=== PATIENT | female | born 1995 | race Two or more races ===

== ENCOUNTER 2019-01-30 13:52 | Emergency (ER) | payer MEDICAID, BC ==
[~2019-01-30] VITALS: Ht 152.4 cm; Wt 64.4 kg
--- NOTE | 2019-01-30 14:13 | NUR ---
BIB ra, pt was sitting in bath tub at home. ON ARRIVAL, PT AOX0. SKIN INTACT, VSS, RR EVEN AND UNLABORED ON RA. HOOKED TO MONITOR AND MADE COMFORTABLE. [employer] AT BEDSIDE. READY FOR EVAL.
[2019-01-30] MEDS ORDERED: NALOXONE HCL 0.4 MG/ML AMPUL ONE (14:17)
[2019-01-30 14:29] LABS: BASOPHILS # (AUTO) 0.1 /CMM (0.0-0.2); HEMATOCRIT 44 % (33-45); HEMOGLOBIN 15.3 g/dL (11.5-14.8); LYMPHOCYTES # (AUTO) 2.4 /CMM (0.8-4.8); LYMPHOCYTES % (AUTO) 21.4 % (20.0-44.0); MEAN CORPUSCULAR HGB CONC 35 g/dl (31.0-36.0); MEAN CORPUSCULAR VOLUME 89 fL (82-100); MONOCYTES # (AUTO) 0.7 /CMM (0.1-1.30); MONOCYTES % (AUTO) 6.1 % (2.0-12.0); NEUTROPHILS % (AUTO) 70.5 % (43.0-81.0); PLATELET COUNT (AUTO) 232 /CMM (150-450); RED BLOOD CELL COUNT(AUTO) 4.94 MIL/uL (4.0-5.2); WHITE BLOOD COUNT (AUTO) 11.4 K/uL (4.3-11.0)
[2019-01-30] MEDS ORDERED: NALOXONE HCL 0.4 MG/ML AMPUL IV ONE (14:30)
[2019-01-30] MEDS ORDERED: IV NS 0.9% 1,000 ML BAG IV ONE (14:30)
[2019-01-30 14:37] LABS: CALCIUM, SERUM 9.5 mg/dL (8.5-10.1); CARBON DIOXIDE 31 mmol/L (21-32); CHLORIDE 102 mmol/L (98-107); CREATININE 1.1 mg/dL (0.6-1.3); GLUCOSE 82 mg/dL (74-106); POTASSIUM 3.7 mmol/L (3.5-5.1); SODIUM SERUM 142 mmol/L (136-145); UREA NITROGEN, BLOOD 19 mg/dL (7-18)
--- NOTE | 2019-01-30 14:42 | NUR ---
IV ACCESS ESTABLISHED. PT TALKING A BIT. DENIES SI, STATES SHE'S WORRIED SHE MIGHT HURT SOMEONE BUT IS NOT SPECIFIC. AWARE
[2019-01-30 14:47] LABS: ACETAMINOPHEN < 2 ug/ml (10-30); ALANINE AMINOTRANSFERASE 30 U/L (12-78); ALBUMIN 4.5 g/dL (3.4-5.0); ALCOHOL, BLOOD < 3 mg/dL (0-0); ALKALINE PHOSPHATASE 38 U/L (46-116); ASPARTATE AMINOTRANSFERASE 16 U/L (15-37); BILIRUBIN,DIRECT 0.1 mg/dL (0.0-0.2); BILIRUBIN,TOTAL 0.6 mg/dL (0.2-1.0); SALICYLATE 1.6 mg/dL (2.8-20.0); TOTAL PROTEIN, SERUM 8.4 g/dL (6.4-8.2)
--- NOTE | 2019-01-30 15:30 | NUR ---
GIRLFRIEND AT BEDSIDE
--- NOTE | 2019-01-30 15:47 | NUR ---
URINE COLLECTED VIA STRAIGHT CATH AND SENT TO STAT LAB PER
[2019-01-30 16:09] LABS: APPEARANCE,URINE Clear (CLEAR); BILIRUBIN,URINE MODERATE (NEGATIVE); BLOOD, URINE Trace-intact Ery/uL (NEGATIVE); COLOR,URINE Dark (YELLOW); KETONES,URINE >=160 (NEGATIVE); LEUKOCYTE ESTERASE ,URINE Negative (NEGATIVE); NITRITE, URINE Negative (NEGATIVE); PROTEIN,URINE 100 mg/dl (NEGATIVE); UGLUCOSE Negative (NEGATIVE)
[2019-01-30 16:25] LABS: BACTERIA,URINE Moderate /HPF (None Seen); RBC,URINE 0-3 /HPF (0-2); WBC,URINE 0-2 /HPF (0-3)
[2019-01-30 16:26] LABS: SQUAMOUS EPITHELIAL CELL,UR Few /HPF (None Seen)
--- NOTE | 2019-01-30 16:48 | NUR ---
PT IS TALKING. APPEARS TO BE IN BETTER SPIRITS. MD AWARE
--- NOTE | 2019-01-30 17:08 | NUR ---
CALLED MINI ESTRELLA [facility] FOR CONSULT, LEFT MESSAGE.
--- NOTE | 2019-01-30 18:27 | NUR ---
PT SITTING COMFORTABLY IN BED CHATTING WITH FAMILY. NO COMPLAINTS AT THIS TIME. WILL CONT TO MONITOR.
[2019-01-30 18:54] VITALS: BP 122/78
--- NOTE | 2019-01-30 19:34 | NUR ---
Patient eloped from facility. ER MD notified.
== END 2019-01-30 19:34 | disposition left against medical advice (07) ==
LOC: ER 13:53
DX: R41.82 Altered mental status, unspecified (principal); F19.10 Other psychoactive substance abuse, uncomplicated; F32.9 Major depressive disorder, single episode, unspecified; R45.851 Suicidal ideations; F12.10 Cannabis abuse, uncomplicated; F15.10 Other stimulant abuse, uncomplicated
CPT/HCPCS: 36415; 71045; 80048; 80076; 80305; 80307; 80329; 81001; 84702; 85025; 87086; 96361; 96374; 99284; G0480; J2310; J7030; 81000-TC

== ENCOUNTER 2019-03-05 09:29 | Emergency (ER) | payer BC, MEDICAID ==
[~2019-03-05] VITALS: Ht 167.6 cm; Wt 80.3 kg
--- NOTE | 2019-03-05 09:50 | NUR ---
PT BROUGHT FOR C/C ANXIOUS SINCE THIS AM, POSS WITHDRAWING FROM MDMA PER PT. WILL CONTINUE TO MONITOR
--- NOTE | 2019-03-05 09:55 | NUR ---
PT STATES "I THINK I'M WITHDRAWING FROM MDMA." PT STATES LAST USE WAS 2 DAYS AGO. PT REPORTS FEELING VERY ANXIOUS. URBAN ANTHROPOLOGIST SHOWS NSR 70BPM. RESPIRATIONS EVEN AND UNLABORED 18 PER MIN. O2 SAT 99% ON RA. LUNGS CTA. ABDOMEN SOFT AND NONDISTENDED. BOWEL SOUNDS PRESENT IN ALL 4 QUADRANTS. PT REPORTS 6/10 CRAMPING PAIN IN LOWER ABDOMEN. PT ALSO HAS C/O "TONGUE SORES," PT HAS WHITE PATCHES ON TONGUE. SAFETY PRECAUTIONS IN PLACE. FAMILY AT BEDSIDE. PENDING MD HU AND ORDERS.
[2019-03-05] MEDS ORDERED: LORAZEPAM 1 MG TABLET PO ONE (10:30)
[2019-03-05] MEDS ORDERED: LORAZEPAM 0.5 MG TABLET ONE (10:35)
--- NOTE | 2019-03-05 10:45 | NUR ---
PT NOW DENIES ALL BODY PAIN, STATES SHE IS INTERESTED IN JOINING A REHABILITATION PROGRAM FOR HER MDMA, MARIJUANA, AND ALCOHOL USE. AAOX4.
--- NOTE | 2019-03-05 11:26 | NUR ---
CALLED [facility] FOR SOCIAL SERVICE CONSULT, STATES WILL BE HERE WHEN SHE IS AVAILABLE.
--- NOTE | 2019-03-05 11:45 | NUR ---
PT STATES SHE NO LONGER FEELS ANXIOUS, MANAGER OF CASE AT BEDSIDE WITH PT. VS WNL. AAOX4. BREATHS EVEN AND UNLABORED. PENDING CONSULT AND DISPOSITION.
--- NOTE | 2019-03-05 12:12 | NUR ---
PT VERBALIZED UNDERSTANDING OF DISCHARGE AND RX INSTRUCTIONS. AAOX4. BREATHS EVEN AND UNLABORED. VS WNL. ALL QUESTIONS ANSWERED. BELONGINGS WITH PT. NO S/S DISTRESS.
[2019-03-05 12:13] VITALS: BP 130/84
--- NOTE | 2019-03-05 12:19 | NUR ---
Social service consult requested by Dr. Tatum for alcohol/drug resources and mental health clinics. Pt. is a 23 year old female who came to ED for withdrawals. BALDOMERO met with pt. bedside. Pt's sister Estella was bedside. SW requested if she could step away for privacy and pt. agreed to have sister step away. Pt. is alert and oriented x 4. Pt's mood is congruent. Pt. stated she was homeless for about a month but is currently living with her mom. Prior to being homeless a month ago, pt. was living in girlfriend's car. Pt. receives GR and food stamps. Pt. appears to have insight on her drug and alcohol use and is seeking to go into a treatment program. 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 Pt. has been using ecstasy on and off for the past two months. Pt. drinks a bottle of alcohol every two days (any type of alcohol). Pt. has a psychiatric diagnosis of Major Depressive Disorder and was prescribed Wellbutrin and Zoloft but never took the medication. Pt. has a history of psychiatric hospitalizations. The most recent hospitalization was on December 08, 2018. Pt. currently denies any suicidal and homicidal ideations. BALDOMERO encouraged pt. to attend a treatment program and gave her the following resources: [facility] (Behavioral Health) [address] [facility], 2nd floor Need appointment [place] [address] Main Number: [facility] ([facility]): Contact Kiesha Ram [facility] [address] [place] [address] Walk-in for psychiatric consultation HOURS: Fri-Fri 8am--7pm Saturdays 9am--5:30pm [facility] (Behavioral Health) [facility] Walk-in during certain hours [place] [address] Operation Hours: FRI - FRI 8:00 a.m. - 5:00 p.m. Walk In Hours: FRI - FRI 8:00 a.m. - 5:00 p.m. Services by Age: Adults and Older Adults Mental Health Services: [facility] ([facility]) Medication Support Mental Health Services Peer Support NOTE: ACCESS Center 21/04 helpline: Alcohol and Drug Treatment Programs [facility] Substance Abuse Self-helpline ([facility]) Substance Abuse Contact number . Call the hotline and the head turbine operator will screen and link individual to an appropriate program. Must have Medi-stella or be Med-stella eligible. [facility] [address] [facility]. [place] [id number] [facility] [address] [place] [address] Appointment needed Intake at 8.00 am but this does not mean acceptance [facility] (Hindu based) [address] [facility] [place] [address] (Six months program and need to work for 8 hrs per day while in treatment) [facility] (No insurance required) [address] [place] [address] [facility] [address] [facility] [address] Closed on Friday [facility] [phone] [address] [facility] [address] Prefer phone calls. They do allow walk-ins but prefer appointments.
== END 2019-03-05 12:44 | disposition home or self-care (01) ==
LOC: ER 09:32
DX: F41.9 Anxiety disorder, unspecified (principal); F19.10 Other psychoactive substance abuse, uncomplicated; F32.9 Major depressive disorder, single episode, unspecified; F17.200 Nicotine dependence, unspecified, uncomplicated; Z59.0 Homelessness

== ENCOUNTER 2019-03-07 17:20 | Emergency (ER) | payer MEDICAID ==
[~2019-03-07] VITALS: Ht 167.6 cm; Wt 80.3 kg
[2019-03-07] MEDS ORDERED: LIDOCAINE VISCOUS 2% UD 15 ML UDC PO ONE (17:25)
[2019-03-07] MEDS ORDERED: diphenhydrAMINE HCL ELIX 25 MG/10 ML UDC PO ONE (17:25)
[2019-03-07] MEDS ORDERED: MAG HYDROX/AL HYDROX/SIMETH 30 ML UDC PO ONE (17:25)
[2019-03-07 17:31] VITALS: BP 167/100
[2019-03-07] MEDS ORDERED: MISCELLANEOUS MED 1 EA EA XX ONE (18:30)
[2019-03-07] MEDS ORDERED: MAALOX MM ONE (18:30)
[2019-03-07] MEDS ORDERED: LIDOCAINE MM ONE (18:30)
[2019-03-07] MEDS ORDERED: [UNRECOGNIZED DRUG - OTHER] MM ONE (18:30)
== END 2019-03-07 19:26 | disposition home or self-care (01) ==
LOC: ER 17:24
DX: K12.0 Recurrent oral aphthae (principal); F32.9 Major depressive disorder, single episode, unspecified; F17.200 Nicotine dependence, unspecified, uncomplicated; Z59.0 Homelessness
CPT/HCPCS: 99283; Q0163